=== PATIENT | female | born 1990 | race Caucasian/White ===

== ENCOUNTER 2018-12-18 05:14 | Emergency (ER) | payer OTHER ==
[~2018-12-18] VITALS: Ht 157.5 cm; Wt 94.8 kg
[2018-12-18] MEDS ORDERED: ONDANSETRON ODT 8 MG ONE (05:40)
[2018-12-18] MEDS ORDERED: ACETAMINOPHEN 500 MG TABLET ONE (05:47)
--- NOTE | 2018-12-18 05:51 | NUR ---
PT GIVEN PO CHALLENGE FLUIDS PER MD ORDER AND PO MEDS PER DEC.
[2018-12-18] MEDS ORDERED: ONDANSETRON ODT 8 MG PO ONE (06:00)
[2018-12-18] MEDS ORDERED: ACETAMINOPHEN 500 MG TABLET PO ONE (06:00)
[2018-12-18 06:28] VITALS: BP 123/78
--- NOTE | 2018-12-18 06:29 | NUR ---
PT GIVEN 2 CUPS OF WATER AND DRANK ALL OF IT. NO EMESIS NOTED. STATES "I FEEL LESS NAUSEAOUS." AWARE. AWAITING RECHECK.
== END 2018-12-18 06:49 | disposition home or self-care (01) ==
LOC: ED 06:42
DX: B34.9 Viral infection, unspecified (principal); R11.2 Nausea with vomiting, unspecified
CPT/HCPCS: 99283; Q0162